=== PATIENT | female | born 1980 | race Caucasian/White ===

== ENCOUNTER 2025-02-13 03:12 | Day surgery (SDC) | payer BC, SELFPAY ==
[2025-02-08 13:17] VITALS: BMI 29.8
--- NOTE | 2025-02-08 13:30 | SUR.PREOP ---
[facility] has started construction of its new state of the art ER which will open Spring 2026. With this, we anticipate parking may be a challenge for some our surgical patients and families. Parking spaces are limited but are available for all Surgical, obstetrics, and ER patients sharing this lot. If you arrive and find you are having a hard time finding a parking space, please note that we understand the challenges, please drive around the hospital and park near Hospital Entrance 1. When you enter this entrance, you can ask a volunteer to direct or take you back to the surgical waiting area to check in. We appreciate everyone?s understanding of these expected challenges while we build for your future. Report to the Outpatient Waiting Room, entrance under the green pavilion located off [address], at time 6:00a.m. on date 02/13/25. Planned Procedure Time: 7:30a.m..? Time changes happen often and if your time is changed the preop area will call you the afternoon before. - You and your visitor will be asked to self-screen and do not enter if you have any COVID symptoms. Please call surgeon if you need to reschedule. - A mask is optional within the hospital at this time. Patients may have clear liquids (water, carbonated beverages, clear teas, apple juice) until 3 hours prior to surgery with a maximum of 20 ounces. - No food from midnight until time of surgery and no smoking, or chewing tobacco (or any form of nicotine). No chewing gum, candy or mints. - Infants may have breast milk until 4 hours before surgery, formula 6 hours prior to surgery. - Children will be allowed to drink immediately following surgery.? If applicable, please bring a bottle or sippy cup to assist with drinking. Juice, water, soda, and popsicles are readily available.? For infants on formula, please bring formula the day of surgery.? Pacifiers are allowed. Take only the following medications with a SIP of water on the morning of surgery: N/A DO NOT STOP ANY OF YOUR OTHER PRESCRIPTION MEDICATIONS PRIOR TO SURGERY EXCEPT THE FOLLOWING Hold all vitamins and supplements for 3 days per anesthesiologist. Medications to discontinue per physician N/A Date to take last dose N/A Please no make-up, nail peruvian, hairspray, perfume, deodorant, or body powder the day of surgery.? No jewelry (including any body piercings) or valuables the day of surgery, leave them at home.? Please take a shower or bath the night before, or the morning of, surgery with an antibacterial soap.? Wear comfortable, loose fitting clothing.? Children are encouraged to wear pajamas. - Jewelry must be removed prior to entering the operating room.? Rings and piercings that are not removed may be cut off. - The hospital will not accept responsibility for valuables.? - Please leave all valuables, including medications, at home the day of surgery. If you are going home after surgery, a licensed class a truck driver must drive you home.? - NO public transportation without another adult if you receive anesthesia. - We recommend that an adult stay with you for 24 hours following discharge. - We also recommend that you do not drive, make important decision, drink alcoholic beverages, or take any drugs that were not prescribed by your health care provider for at least 24 hours after your discharge time. For Pediatric surgeries, we recommend two adults accompany the child home. Follow any additional instructions given to you from your surgeon. Telephone instructions given to Ivone Rivers and asked if any additional questions and then verbalized understanding. Patient advised to call surgeon office or pre surgery nurse liaison [phone] if any additional questions.
[2025-02-13 06:10] VITALS: BP 144/88; PULSE 65; RESP 16; TEMP 36.3; O2SAT 100
[2025-02-13 06:20] VITALS: BMI 31.3
[2025-02-13] MEDS: LACTATED RINGERS 1,000 ML 30 ML IV CONT (06:30)
[2025-02-13] MEDS: ACETAMINOPHEN 500 MG TABLET 1000 MG PO (06:37)
--- NOTE | 2025-02-13 06:54 | WPDANESEPPF ---
Anes - Initial Pre Proc Eval Procedure: Operation Date: 02/13/25 07:30 Proposed Procedures p Hysteroscopy Dilation and Curettage with Intrauterine Device Removal - Senia Hung MD Date/Time: 02/13/25 06:54 Surgeon: Senia Hung MD Pre Op Diagnosis: Endometrial Polyp Patient Data Age: 44 Gender: F Height: 1.83 m Weight: 104.7 kg Allergies Allergy/AdvReac Type Severity Reaction Status Date / Time No Known Allergies Allergy Verified 02/13/25 06:20 Home Medications ?Medication ?Instructions ?Recorded ?Confirmed ?Type cetirizine 10 mg capsule (All Day 10 mg PO DAILY PRN hives 02/08/25 02/08/25 History Allergy (cetirizine)) lisdexamfetamine 70 mg capsule 70 mg PO DAILY 02/08/25 02/08/25 History methylphenidate HCl 5 mg tablet 5 mg PO BID PRN ADHD 02/08/25 02/08/25 History montelukast 10 mg tablet 10 mg PO DAILY 02/08/25 02/08/25 History tolterodine 4 mg capsule,extended 4 mg PO Q24H 02/08/25 02/08/25 History release 24 hr Patient hx anesthesia problems: none Family hx anesthesia problems: none Results Review: All pre-operative results and documents have been reviewed as part of the pre-operative evaluation. [facility] Past Medical History Medical History (Updated 02/13/25 @ 06:56 by Rod Quiroz MD) Obesity Surgical History Surgical History (Updated 02/13/25 @ 06:56 by Rod Quiroz MD) History of cholecystectomy Social History Social History Smoking packs per day: 1 Smoking cigarettes per day: 20.0 Years smoked: 15 Smoking pack-years: 15.00 Smoking status: Former smoker Tobacco type: cigarettes Alcohol intake: current Drinks per week: 4 Living arrangements: with family Anes - Eval Final PreProcedure Day of Procedure 02/13/25 06:54 Patient weight: obese Heart: regular rate and rhythm Lungs: clear to auscultation Airway: Mallampati scale class II Neurological: alert and oriented Last oral intake: >/= 8 hours ASA classification: II Emergent: no Anesthetic plan: proceed Anesthesia type and monitoring: general GIVS and standard monitoring Results Review: All pre-operative results and documents have been reviewed as part of the pre-operative evaluation. Informed Consent: The patient's anesthetic plan and its attendant risks and benefits were discussed with the patient/family/POA. Questions were solicited and answers provided to the satisfaction of the patient/family/POA.
[2025-02-13 07:07] LABS: BEDSIDEPREGUCG Negative (Negative)
--- NOTE | 2025-02-13 07:14 | WPDHPUPDATE1 ---
History and Physical Update Update Date/Time: 02/13/25 07:14 History and Physical has been reviewed, including an updated exam of the patient. There are NO changes in the patient's condition. Risks, benefits, and alternatives have been discussed and questions answered. Patient agrees to proceed with procedure.
--- NOTE | 2025-02-13 07:15 | PM.HPGS ---
History of Present Illness History of Present Illness Consent: Risks, benefits, and alternatives have been discussed and questions answered. Patient agrees to proceed with procedure. Chief complaint: Endometrial Polyp and IUD removal Narrative: Ivone Rivers is a 44 year old female with abnormal Pap smear showing atypical squamous cells of undetermined significance with positive HPV. Patient underwent colposcopy with endocervical curettings and the endocervical curetting showed a possible endometrial polyp with ischemic tissue. Patient states no abnormal bleeding or spotting. It was recommended to undergo D&C hysteroscopy to further evaluate. In addition the patient's IUD is expiring and she wishes it to be removed in the operating room while under anesthesia. Risks of infection, bleeding, perforation, and possible pathology are reviewed. Patient voices understanding and agrees to proceed. Review of Systems Review of Systems: not repeated day of surgery; patient states no changes in status PMFSH Past Medical History Medical History (Updated 02/13/25 @ 07:19 by Senia Hung MD) History of foot fracture Right ADHD Surgical History Surgical History (Updated 02/13/25 @ 07:18 by Senia Hung MD) History of surgery on lower extremity Hamstring reattachment September 20, 2024 History of tonsillectomy History of cholecystectomy Social History Social History Smoking packs per day: 1 Smoking cigarettes per day: 20.0 Years smoked: 15 Smoking pack-years: 15.00 Smoking status: Former smoker Tobacco type: cigarettes Alcohol intake: current Drinks per week: 4 Living arrangements: with family Meds Home Medications and Allergies Home Medications ?Medication ?Instructions ?Recorded ?Confirmed ?Type cetirizine 10 mg capsule (All Day 10 mg PO DAILY PRN hives 02/08/25 02/08/25 History Allergy (cetirizine)) lisdexamfetamine 70 mg capsule 70 mg PO DAILY 02/08/25 02/13/25 History methylphenidate HCl 5 mg tablet 5 mg PO BID PRN ADHD 02/08/25 02/08/25 History montelukast 10 mg tablet 10 mg PO DAILY 02/08/25 02/13/25 History tolterodine 4 mg capsule,extended 4 mg PO Q24H 02/08/25 02/13/25 History release 24 hr Allergies Allergy/AdvReac Type Severity Reaction Status Date / Time No Known Allergies Allergy Verified 02/13/25 06:20 Vital Signs Vital Signs - 24 hr 02/13/25 06:10 Temperature 97.3 F L Pulse Rate 65 Respiratory Rate 16 Blood Pressure 144/88 H Pulse Oximetry 100 Oxygen Delivery Room Air Exam Const: General: healthy appearing and alert Orientation/consciousness: patient oriented x3 Resp: Auscultation: clear to auscultation bilaterally GI: GI Palp: Yes Soft to palpation, No Tenderness to palpation present (GI) and No Palpable mass present : External Female Exam: normal external appearance Speculum Exam - Vagina: normal appearance of the vagina and normal vaginal discharge Speculum Exam - Cervix: normal appearance of the cervix Bimanual exam- vagina & uterus: uterine size normal and consistency normal Bimanual Exam- Adnexa, other: normal adnexae and No adnexal tenderness Neuro: General: patient oriented x3 Assessment and Plan Assessment and plan (1) Endometrial polyp: Code(s): N84.0 - Polyp of corpus uteri Status: Acute Assessment and Plan: Plan to proceed with D&C hysteroscopy (2) IUD (intrauterine device) in place: Code(s): Z97.5 - Presence of (intrauterine) contraceptive device Status: Acute Assessment and Plan: Plan to remove
--- NOTE | 2025-02-13 07:41 | S_PTH ---
PATIENT: Ivone Rivers LOC: [facility] U#:[id number] AGE/SX: 44/F ROOM: RE02/13/[address]: Senia Hung MD : 1980 BED: DIS: 02/13/2025 SPEC #: [id number] RECD: 02/13/25 09:47 STATUS: BOB REAlma #: [id number] KENDRA: 02/13/25 07:[address]: Senia Hung DEPT: [facility] Surgical RECD BY: Patt Pillai ENTERED: 02/13/25 09:47 SP TYPE: Surgical OTHR DR: Calli Salazar, SHOE TURNER Tissues: A - Endometrial Curettings Procedures: Hematoxylin and Eosin Stain Gross and Microscopic Level 4
--- NOTE | 2025-02-13 07:46 | W.PM.PROC2 ---
Procedure Note - Detailed Date of Procedure 02/13/25 Pre-op Diagnosis Endometrial Polyp and IUD removal Post-op Diagnosis Same Procedure Performed D&C hysteroscopy IUD removal Surgeon Senia Hung MD Anesthesia MAC Findings IUD strings present at the cervix. Uterus sounds to 8cm and appears grossly atrophic. Description of Procedure The patient was taken to the operating room and placed under anesthesia in the dorsal lithotomy position. She was prepped and draped in the usual sterile fashion. Woden speculum was placed in the vagina and the cervix grasped on the anterior lip with tenaculum. The IUD strings are grasped with a ring forcep and the IUD removed intact and discarded. The uterus is sounded to 8cm. The diagnostic hysteroscope was placed and with the above-stated findings it was removed. The endometrium was curetted with a sharp curette until a good uterine cry was noted in all areas. Minimal material was obtained consistent with the atrophic appearance. Instruments are removed. Sponge, needle, and instrument counts are correct per the OR staff. The patient was taken to recovery in stable condition. Estimated Blood Loss 5 Drains No Packing No Pathology Yes (Endometrial curettings) Complications No immediate complications Condition Stable Disposition PACU
[2025-02-13 07:48] VITALS: BP 110/70; PULSE 62; RESP 14; O2SAT 99
[2025-02-13 08:15] VITALS: BP 107/69; PULSE 56; RESP 20; O2SAT 98
[2025-02-13 08:45] VITALS: BP 105/69; PULSE 53; RESP 20
[2025-02-13 09:10] VITALS: BP 121/75; PULSE 54; RESP 20
== END 2025-02-13 09:15 | disposition home or self-care (01) ==
PROVIDERS: PCP Nurse Practitioner; Visit Provider Obstetrics & Gynecology Gynecology
PROC: 0U5B8ZZ Destruction of Endometrium, Via Natural or Artificial Opening Endoscopic (ICD-10-PCS; CPT 58563; principal; 2025-02-13 07:30)
DX: N84.0 Polyp of corpus uteri (principal); Z30.432 Encounter for removal of intrauterine contraceptive device; F90.9 Attention-deficit hyperactivity disorder, unspecified type; Z87.891 Personal history of nicotine dependence
CPT/HCPCS: 58558; 88305; A9270; J2003; J2250; J2704; J3010; J7120